=== PATIENT | male | born 1955 | race Two or more races ===

== ENCOUNTER 2018-09-06 10:14 | Emergency (ER) | payer OTHER ==
[~2018-09-06] VITALS: Ht 157.5 cm; Wt 90.7 kg
[2018-09-06 10:44] VITALS: BP 177/77
[2018-09-06] MEDS ORDERED: KETOROLAC TROMETH 60MG/2ML VIAL IM ONE (11:00)
== END 2018-09-06 12:21 | disposition home or self-care (01) ==
LOC: ER 10:20
DX: M51.16 Intervertebral disc disorders with radiculopathy, lumbar region (principal); M43.16 Spondylolisthesis, lumbar region; I10 Essential (primary) hypertension; X50.1XXA Overexertion from prolonged static or awkward postures, initial encounter; Y93.89 Activity, other specified; Y92.89 Other specified places as the place of occurrence of the external cause; Y99.8 Other external cause status
CPT/HCPCS: 72100; 96372; 99283; J1885

== ENCOUNTER 2020-12-29 10:43 | Emergency (ER) | payer SELFPAY ==
[~2020-12-29] VITALS: Ht 157.5 cm; Wt 81.6 kg
[2020-12-29 10:43] VITALS: BP 135/75
[2020-12-29] MEDS ORDERED: ACETAMINOPHEN 325 MG TAB PO ONE (13:15)
== END 2020-12-29 14:14 | disposition home or self-care (01) ==
LOC: ER 10:43
DX: S39.012A Strain of muscle, fascia and tendon of lower back, initial encounter (principal); M47.896 Other spondylosis, lumbar region; M19.90 Unspecified osteoarthritis, unspecified site; I10 Essential (primary) hypertension; Z90.89 Acquired absence of other organs; X58.XXXA Exposure to other specified factors, initial encounter; Y93.89 Activity, other specified; Y92.89 Other specified places as the place of occurrence of the external cause; Y99.8 Other external cause status
CPT/HCPCS: 72100; 93005